=== PATIENT | female | born 1995 | race Caucasian/White ===

== ENCOUNTER 2019-03-30 15:31 | Emergency (ER) | payer OTHER ==
[~2019-03-30] VITALS: Ht 167.6 cm; Wt 67.8 kg
[2019-03-30 15:36] VITALS: BP 114/75
--- NOTE | 2019-03-30 15:45 | NUR ---
BIB SELF. AAO X4 C/O BUG BITE X2 DAYS. PT REPORTS SITTING OUTSIDE SATURDAY NIGHT AND PT NOTICED RED MERCHANT ON RT FOOT AND RT LEG. PT HAS SWOLLEN RIGHT FOOT WITH REDNESS, AND REDNESS ON RT LEG WITH A BLISTER, WARM TO TOUCH. PT TX WITH BENADRYL LAST NIGHT WITH NO RELIEF. 10/10 PAIN THAT INCREASES WITH WALKING. + CMS TO RIGHT LEG. EQUAL GLORIA STRENGTH TO LOWER EXTREMITIES. MD ER TO EVALUATE PT.
--- NOTE | 2019-03-30 16:00 | NUR ---
CINTIA NAZRAIO AT BEDSIDE FOR PT EVAL
[2019-03-30] MEDS ORDERED: KETOROLAC 60 MG/2 ML VIAL IM ONE (16:05)
[2019-03-30] MEDS ORDERED: cefTRIAXone 1,000 MG in LIDOCAINE MPF 1% - 5 mL VIAL 2.1 ML IM ONE (16:05)
[2019-03-30] MEDS ORDERED: ALBUTEROL 0.083% 2.5 MG/3 ML NEBU INH ONE (16:10)
--- NOTE | 2019-03-30 16:28 | NUR ---
RT AT BEDSIDE FOR BREATHING TX
[2019-03-30 17:13] VITALS: BP 116/78
--- NOTE | 2019-03-30 17:13 | NUR ---
Patient discharged with v/s stable. Written and verbal after care instructions given and explained. Patient alert, oriented and verbalized understanding of instructions. Ambulatory with steady gait. All questions addressed prior to discharge. ID band removed. Patient advised to follow up with PMD. Rx of Ventolin HFA inhalation, Medrol, Ibuprofen, Keflex, Benadryl given. Patient educated on indication of medication including possible reaction and side effects. Opportunity to ask questions provided and answered.
== END 2019-03-30 17:13 | disposition home or self-care (01) ==
LOC: MED 15:31
DX: L03.115 Cellulitis of right lower limb (principal); J20.9 Acute bronchitis, unspecified
CPT/HCPCS: 81025; 94640; 96372; 99283; J0696; J1885; J2001; J7613

== ENCOUNTER 2019-03-31 15:50 | Emergency (ER) | payer OTHER ==
[~2019-03-31] VITALS: Ht 167.6 cm; Wt 68.0 kg
[2019-03-31 16:00] VITALS: BP 131/65
--- NOTE | 2019-03-31 16:00 | NUR ---
PT BIB MOM C/O BUG BITE SINCE 2 DAYS AGO. PT WAS SEEN HERE YESTERDAY AND TOLD TO RETURN IN ONE DAY, PT RECIEVED BENADRYL, KEFLEX, ALBUTEROL, AND MOTRIN. RASH ON RT LEG AND RT FOOT HAVE DECREASED IN SIZE, PT REPORTS PAIN HAS DECREASED AND IS AT 7/10 WHEN WALKING. VSS. ER TO SEE PT. MEDHX:SADEIES
[2019-03-31 16:17] VITALS: BP 131/65
--- NOTE | 2019-03-31 16:17 | NUR ---
Patient discharged with v/s stable. Written and verbal after care instructions given and explained. Patient verbalized understanding. Ambulatory with steady gait. All questions addressed prior to discharge. Advised to follow up with PMD.
== END 2019-03-31 16:17 | disposition home or self-care (01) ==
LOC: MED 15:50
DX: L03.115 Cellulitis of right lower limb (principal); R03.0 Elevated blood-pressure reading, without diagnosis of hypertension
CPT/HCPCS: 99281

== ENCOUNTER 2019-08-11 14:34 | Emergency (ER) | payer OTHER ==
[~2019-08-11] VITALS: Ht 167.6 cm; Wt 66.2 kg
[2019-08-11 14:58] VITALS: BP 139/80
[2019-08-11] MEDS ORDERED: IBUPROFEN 400 MG TAB PO ONE (15:05)
[2019-08-11] MEDS ORDERED: ACETAMINOPHEN 325 MG TAB PO ONE (15:05)
[2019-08-11] MEDS ORDERED: IBUPROFEN 400 MG TAB ONE (15:07)
--- NOTE | 2019-08-11 15:31 | NUR ---
BIB SELF C/O SORE THROAT, FEVER & BODY PAIN X 1 DAYS. PATIENT STATES PAIN OF 6/10 AT THIS TIME;PATIENT POSITIONED FOR COMFORT; HOB ELEVATED; BEDRAILS UP X1; BED DOWN. ER MD MADE AWARE OF PT STATUS.
[2019-08-11 16:42] VITALS: BP 129/67
== END 2019-08-11 16:42 | disposition home or self-care (01) ==
LOC: MED 14:34
DX: J03.90 Acute tonsillitis, unspecified (principal); R03.0 Elevated blood-pressure reading, without diagnosis of hypertension
CPT/HCPCS: 87081; 99283

== ENCOUNTER 2019-08-14 22:47 | Emergency (ER) | payer OTHER ==
[~2019-08-14] VITALS: Ht 167.6 cm; Wt 67.6 kg
[2019-08-14 23:28] VITALS: BP 138/78
--- NOTE | 2019-08-14 23:32 | NUR ---
AMBULATES TO RR WITH STEADY GAIT IN UPRIGHT POSITION. Addendum: 08/14/19 at 2332 by [facility] AWAITING AVAILABLE BED.
--- NOTE | 2019-08-15 00:03 | NUR ---
PT AMBULATED SELF TO BED #1
--- NOTE | 2019-08-15 00:26 | NUR ---
24 Y/O FEMALE PRESENTS TO ED, C/O OF LOWER ABDOMINAL PAIN 07/09. PT STATES PAIN STARTED YESTERDAY MORNING ALONG WITH BURNING SENSATION VOIDING. PAIN DOES NOT RADIATE. BS ACTIVE X4 QUADRANTS. PAIN ON LOWER QUADRANTS UPON PALPATION. PT DENIES TAKING ANY MEDICATIONS TO ALLEVIATE PAIN. PT STABLE. ERMD AWARE. WILL CONTINUE TO MONITOR.
[2019-08-15 02:00] VITALS: BP 131/61
--- NOTE | 2019-08-15 02:00 | NUR ---
Note rickeyone in EDM - 08/15/19 at 0221 by VALERIA PT DISCHARGED WITH PAPERWORK. RX MACROBID. EDUCATED PT REGARDING MEDICATION AND S/E. EDUCATED PT REGARDING D/C DIAGNOSIS AND INSTRUCTIONS. PT VERBALIZED UNDERSTANDING OF TEACHING. TOLD PT TO FOLLOW UP WITH PCP AND WHEN TO RETURN TO ED. PT VSS. ALL QUESTIONS ANSWERED.
--- NOTE | 2019-08-15 02:10 | NUR ---
PT DISCHARGED WITH PAPERWORK. RX MACROBID. EDUCATED PT REGARDING MEDICATION AND S/E. EDUCATED PT REGARDING D/C DIAGNOSIS AND INSTRUCTIONS. PT VERBALIZED UNDERSTANDING OF TEACHING. TOLD PT TO FOLLOW UP WITH PCP AND WHEN TO RETURN TO ED. PT VSS. ALL QUESTIONS ANSWERED.
== END 2019-08-15 02:00 | disposition home or self-care (01) ==
LOC: MED 22:47
DX: N39.0 Urinary tract infection, site not specified (principal)
CPT/HCPCS: 81002; 81025; 99283

== ENCOUNTER 2019-12-09 12:08 | Emergency (ER) | payer SELFPAY ==
[~2019-12-09] VITALS: Ht 154.9 cm; Wt 68.7 kg
[2019-12-09 12:32] VITALS: BP 122/65
--- NOTE | 2019-12-09 12:41 | NUR ---
24 Y/O FEMALE C/O NECK PAIN AND RT SIDED THROAT PAIN SINCE YESTERDAY. STATES INCREASED PAIN WHEN SWALLOWING. DENIES DIFFICULTY BREATHING. 07/09 SHARP PAIN TO THROAT. DENIES COUGH. PT STATES SHE THOUGHT SHE "SLEPT WRONG" LAST NIGHT BUT INCREAING PAIN. TOOK IBUPROFEN AT 0830 WITH MINIMAL RELIEF. RR EVEN AND UNLABORED. VSS MEDHX: DENIES ALLERGIES: NKA
--- NOTE | 2019-12-09 13:19 | NUR ---
NAZARIO EXAMINING PT
[2019-12-09] MEDS: KETOROLAC 30 MG/ML VIAL IM ONE (13:29)
--- NOTE | 2019-12-09 14:28 | NUR ---
PER PT PAIN HAS DECREASED, TOLERABLE.
--- NOTE | 2019-12-09 14:52 | NUR ---
SITTING UPRIGHT ON CELLPHONE AWAKE AND ALERT. VSS. WILL CONTINUE TO MONITOR
[2019-12-09 14:57] VITALS: BP 119/77
--- NOTE | 2019-12-09 14:58 | NUR ---
Patient discharged with v/s stable. Written and verbal after care instructions given and explained. Patient alert, oriented and verbalized understanding of instructions. Ambulatory with steady gait. All questions addressed prior to discharge. ID band removed. Patient advised to follow up with PMD. Rx of FLEXERIL AND IBUPROFEN given. Patient educated on indication of medication including possible reaction and side effects. Opportunity to ask questions provided and answered.
== END 2019-12-09 14:58 | disposition home or self-care (01) ==
LOC: MED 12:08
DX: S16.1XXA Strain of muscle, fascia and tendon at neck level, initial encounter (principal); Y99.8 Other external cause status; X58.XXXA Exposure to other specified factors, initial encounter; Y93.89 Activity, other specified; Y92.89 Other specified places as the place of occurrence of the external cause; J02.9 Acute pharyngitis, unspecified
CPT/HCPCS: 96372; 99283; J1885

== ENCOUNTER 2021-05-30 22:53 | Emergency (ER) | payer MEDICAID ==
[~2021-05-30] VITALS: Ht 167.6 cm; Wt 56.2 kg
[2021-05-30 23:15] VITALS: BP 135/88
--- NOTE | 2021-05-30 23:15 | NUR ---
PT AMBULATED TO BED #7
--- NOTE | 2021-05-30 23:20 | NUR ---
PT. IS A 26 Y/O FEMALE THAT CAME INTO ED WITH C/O OF LEFT SIDED ABDOMINAL PAIN. PT. STATES THAT "SINCE SATURDAY SHE HAS BEEN HAVING LOWER ABDOMINAL PAIN THAT FEELS LIKE CRAMPS AND SHARP STABBING PAIN AFTER INTERCOURSE." PT. RATES PAIN 10/10 ON THE PAIN SCALE AT THIS TIME. DENIES N/V/D; SKIN IS PINK/WARM/DRY; AAOX4 WITH EVEN AND STEADY GAIT; HR EVEN AND REGULAR; PT DENIES ANY FEVER, CP, SOB, OR COUGH AT THIS TIME; VSS; PATIENT POSITIONED FOR COMFORT; HOB ELEVATED; BEDRAILS UP X2; BED DOWN. ER MD MADE AWARE OF PT STATUS. PMH: DENIES ALLERGIES: NKA
--- NOTE | 2021-05-30 23:25 | NUR ---
PT ENCOURAGED TO PROVIDE URINE SPECIMEN.
[2021-05-30 23:51] LABS: APPEARANCE,URINE CLEAR (CLEAR); BILIRUBIN,URINE NEGATIVE (NEGATIVE); BLOOD, URINE NEGATIVE (NEGATIVE); COLOR,URINE YELLOW (YELLOW); LEUKOCYTE ESTERASE ,URINE NEGATIVE (NEGATIVE); NITRITE, URINE NEGATIVE (NEGATIVE); UGLUCOSE NEGATIVE (NEGATIVE)
[2021-05-31] MEDS ORDERED: NACL 0.9% 1,000 ML IV ONE (00:10)
[2021-05-31] MEDS ORDERED: KETOROLAC 30 MG/ML VIAL IVP ONE (00:10)
[2021-05-31] MEDS ORDERED: metroNIDAZOLE 500 MG/NS PREMIX 100 ML IV ONE (00:10)
--- NOTE | 2021-05-31 00:35 | NUR ---
PELVIC EXAM COMPLETED BY CHAPARRO GOSS AND ACCOMPANIED BY JUSTIN JIMENEZ (MYSELF).
[2021-05-31 00:42] LABS: BASOPHILS # (AUTO) 0.1 K/uL (0.00-0.22); BASOPHILS % (AUTO) 0.6 % (0.0-2.0); EOSINOPHILS # (AUTO) 0.2 K/uL (0-0.4); EOSINOPHILS % (AUTO) 1.6 % (0.0-4.0); HEMATOCRIT 36.7 % (36-48); HEMOGLOBIN 11.9 g/dL (12.0-16.0); MEAN CORPUSCULAR HEMOGLOBIN 27 pg (27-31); MEAN CORPUSCULAR HGB CONC 33 g/dL (33-37); MEAN CORPUSCULAR VOLUME 83.8 fL (80-94); MONOCYTES # (AUTO) 0.9 K/uL (0.8-1.0); MONOCYTES % (AUTO) 9.1 % (1.7-9.3); NEUTROPHILS # (AUTO) 5.6 K/uL (1.8-7.7); NEUTROPHILS % (AUTO) 57.7 % (42.2-75.2); PLATELET COUNT (AUTO) 284 K/uL (140-450); RED BLOOD CELL COUNT(AUTO) 4.38 MIL/uL (4.20-5.40); RED CELL DISTRIBUTION WIDTH 14.7 % (11.6-13.7); WHITE BLOOD COUNT (AUTO) 9.8 K/uL (4.8-10.8)
--- NOTE | 2021-05-31 00:45 | NUR ---
ALIYAH LIM COLLECTED AND WALKED TO LAB.
--- NOTE | 2021-05-31 01:14 | NUR ---
ULTRASOUND AT BEDSIDE
--- NOTE | 2021-05-31 01:35 | NUR ---
PER DR. GOSS 0.9% NS IVF TO BE RAN AT 999ML/HR INSTEAD OF 100ML/HR. ORDER CARRIED OUT.
--- NOTE | 2021-05-31 02:07 | NUR ---
PT. IN SEMI FOWLERS POSITION LAYING COMFORTABLY IN BED. VOICES NO COMPLAINTS AT THIS TIME, AWAITING DISPOSITION.
--- NOTE | 2021-05-31 02:37 | NUR ---
PT. AMBULATED TO BATHROOM WITH EVEN AND STEADY GAIT.
[2021-05-31] MEDS ORDERED: METR500T1 PO (03:22)
[2021-05-31] MEDS ORDERED: NAPR-54 PO (03:22)
[2021-05-31 03:30] VITALS: BP 112/59
--- NOTE | 2021-05-31 03:30 | NUR ---
Patient discharged with v/s stable. Written and verbal after care instructions given and explained. Patient alert, oriented and verbalized understanding of instructions. Ambulatory with steady gait. All questions addressed prior to discharge. ID band removed. Patient advised to follow up with PMD. Rx of FLAGYL AND NAPROSYN given. Patient educated on indication of medication including possible reaction and side effects. Opportunity to ask questions provided and answered.
== END 2021-05-31 03:30 | disposition home or self-care (01) ==
LOC: MED 22:53
DX: N73.9 Female pelvic inflammatory disease, unspecified (principal); N76.0 Acute vaginitis; B96.89 Other specified bacterial agents as the cause of diseases classified elsewhere; N89.8 Other specified noninflammatory disorders of vagina; Z79.899 Other long term (current) drug therapy
CPT/HCPCS: 36415; 76830; 81003; 85025; 87040; 87210; 87491; 96365; 96375; 99284; J1885; J3490; J7030; Q0092